=== PATIENT | female | born 2000 | race Caucasian/White ===

== ENCOUNTER 2020-07-21 17:38 | Emergency (ER) | payer MEDICAID ==
[~2020-07-21] VITALS: Ht 165.1 cm; Wt 67.3 kg
[2020-07-21 18:09] LABS: COLLECTION METHOD CLEAN CATCH
[2020-07-21 18:16] LABS: MUCOUS Present /lpf; PH 5 (5-8); URINE APPEARANCE Cloudy; URINE BACTERIA Rare /hpf; URINE BILIRUBIN Negative (NEGATIVE); URINE BLOOD 2+ (NEGATIVE); URINE COLOR Amber; URINE GLUCOSE Negative (NEGATIVE); URINE KETONE Negative (NEGATIVE); URINE LEUKOCYTE ESTERASE Trace (NEGATIVE); URINE NITRATE Positive (NEGATIVE); URINE PROTEIN(semi-quant) 2+ (NEGATIVE); URINE RBC >50 /hpf; URINE UROBILINOGEN >=4.0 mg/dL (NEGATIVE)
[2020-07-21] MEDS ORDERED: CEPHALEXIN500 M1 PO (18:24)
[2020-07-21 18:26] VITALS: BP 99/62; PULSE 83; TEMP 98
== END 2020-07-21 18:36 | disposition home or self-care (01) ==
LOC: COL.ER 17:38
PROVIDERS: Emergency Medicine
DX: N39.0 Urinary tract infection, site not specified (principal); Z32.02 Encounter for pregnancy test, result negative; Z84.1 Family history of disorders of kidney and ureter